=== PATIENT | male | born 1960 | race Caucasian/White ===

== ENCOUNTER 2017-07-19 15:21 | Emergency (ER) | payer OTHER ==
[~2017-07-19] VITALS: Ht 177.8 cm; Wt 79.4 kg
[~2017-07-19 15:21] MED LIST: ADVAIR 250/501 DISK IH; ATIVAN1 MG PO; CENTRUM SILVER1 EAC1 PO; COUMADIN1 MG PO; FENTANYL1 EAC2 TD; FLEXERIL10 MG PO; LEVAQUIN750 MG PO; LOVENOX100 MG/1 M SC; NICODERM CQ1 EAC2 TD; OXYCODONE HCL10 MG PO; PREDNISONE20 MG PO; PROVENTIL,2.5 MG/3 M IH; SPIRIVA1 INHALATI IH; WELLBUTRIN XL150 MG PO; ZOLOFT100 MG PO
[2017-07-19] MEDS ORDERED: LIDODERM 5% P1 PATCH TD (16:47)
[2017-07-19 17:22] VITALS: BP 107/77
== END 2017-07-19 17:23 | disposition home or self-care (01) ==
LOC: EME 15:21
DX: S39.012A Strain of muscle, fascia and tendon of lower back, initial encounter (principal); X50.0XXA Overexertion from strenuous movement or load, initial encounter; Y93.F2 Activity, caregiving, lifting; Z88.0 Allergy status to penicillin; Z88.8 Allergy status to other drugs, medicaments and biological substances
CPT/HCPCS: 72100; 99281; 99283